=== PATIENT | female | born 1965 | race Caucasian/White ===

== ENCOUNTER 2022-03-05 23:06 | Inpatient (IN) | payer SELFPAY ==
[2022-03-06] MEDS ORDERED: Dextrose 50% Abboject 50 ML SYRINGE SLOW IVP PRN (00:14)
[2022-03-06] MEDS ORDERED: Dextrose 5% in Water 1,000 ML IV PRN (00:14)
[2022-03-06] MEDS ORDERED: Pantoprazole 40 MG VIAL IVP SCH (00:15)
[2022-03-06] MEDS ORDERED: Potassium Chloride 20 MEQ TAB PO SCH (00:15)
[2022-03-06] MEDS ORDERED: Aspirin Chewable 81 MG TAB PO SCH (00:15)
[2022-03-06] MEDS ORDERED: Furosemide 40 MG/4 ML VIAL SLOW IVP SCH (00:15)
[2022-03-06] MEDS ORDERED: Sertraline 25 MG TAB PO SCH (00:30)
[2022-03-06 00:49] LABS: Magnesium 1.6 mg/dL (1.6-2.6)
[2022-03-06 00:56] LABS: Troponin I 0.034 ng/mL (< 0.028)
[2022-03-06 02:06] LABS: Amphetamine Not Detected (NotDetected); Barbiturates Screen Not Detected (NotDetected); Benzodiazepine Screen Not Detected (NotDetected); Cocaine Metabolite Screen Not Detected (NotDetected); Methadone Not Detected (NotDetected); Methamphetamine Not Detected (NotDetected); Opiate Screen Not Detected (NotDetected); Oxycodone Screen Not Detected (NotDetected); Phencyclidine (PCP) Not Detected (NotDetected); THC/Cannabinoid Screen Not Detected (NotDetected); Tricyclic Screen Not Detected (NotDetected)
[2022-03-06 03:56] LABS: #Basophils 0.1 10x3/uL (0.0-0.2); #Eosinphils 0.4 10x3/uL (0.0-0.5); #Monocytes 0.7 10x3/uL (0.0-1.1); #Neutrophils 5.6 10x3/uL (1.5-8.4); %Basophils 0.9 % (0.0-2.0); %Eosinophils 4.5 % (0.0-6.0); %Lymphocytes 20.6 % (18.0-47.0); %Monocytes 8.4 % (0.0-10.0); %Neutrophils 65.3 % (40.0-75.0); Hemoglobin 9.8 g/dL (12.0-15.5); Mean Corpuscular HGB CONC 33.2 g/dL (32.0-36.0); Mean Corpuscular Hemoglobin 29.6 pg (27.0-33.0); Mean Corpuscular Volume 89.1 fl (81.6-98.3); Mean Platelet Volume 9.5 fl (7.4-10.4); Platelet Count 312 10x3/uL (150-450); Red Blood Cell (RBC) Count 3.31 10x6/uL (3.90-5.03); White Blood Cell (WBC) Count 8.6 10x3/uL (3.5-10.5)
[2022-03-06 04:14] LABS: Cardiac Risk 5.5 (Less than 4.5)
[2022-03-06 04:36] LABS: Uric Acid 7.2 mg/dL (2.6-6.0)
[2022-03-06] MEDS: Furosemide 40 MG/4 ML VIAL SLOW IVP SCH ×2 (06:28→14:46)
[2022-03-06] MEDS: Nitroglycerin 2% Ointment 1 INCH/1 GM Packet TOP SCH ×3 (06:29→22:01)
[2022-03-06] MEDS: HumaLOG 300 UNITS/3 ML VIAL SC PRN (06:29)
[2022-03-06] MEDS: Lisinopril 10 MG TAB PO SCH (08:11)
[2022-03-06] MEDS: Sertraline 25 MG TAB PO SCH (08:11)
[2022-03-06] MEDS: Aspirin Chewable 81 MG TAB PO SCH (08:11)
[2022-03-06] MEDS: Carvedilol 3.125 MG TAB PO SCH ×2 (08:11→21:59)
[2022-03-06] MEDS: Magnesium Oxide 400 MG TAB PO SCH ×2 (08:12→21:59)
[2022-03-06] MEDS: Lantus 1000 UNITS/10 ML VIAL SC SCH ×2 (08:12→21:59)
[2022-03-06] MEDS: metFORMIN 500 MG TAB PO SCH ×2 (08:12→17:42)
[2022-03-06 08:52] LABS: Anion Gap 14 mmol/L (10-20); BUN (Urea Nitrogen) 29 mg/dL (9.8-20.1); Calc. Creatinine Clearance 53 mL/min (70-130); Calcium 8.7 mg/dL (7.8-10.44); Carbon Dioxide 25 mmol/L (22-29); Chloride 102 mmol/L (98-107); Estimated GFR 37; Glucose 355 mg/dL (70-105); Potassium 3.5 mmol/L (3.5-5.1); Sodium 137 mmol/L (136-145)
[2022-03-06] MEDS: Acetaminophen 325 MG TAB PO PRN ×2 (09:58→14:49)
[2022-03-06] MEDS ORDERED: Gabapentin 100 MG CAP PO SCH (11:00)
[2022-03-06 16:04] LABS: Hemoglobin A1c 11.4 % (4.0-6.0)
[2022-03-06] MEDS ORDERED: Calcium Carbonate 500 MG ChewTAB PO PRN (16:55)
[2022-03-06] MEDS ORDERED: Magnesium 2 GM/50 ML(in water) 2 GM in Premix Bag 1 BAG IVPB SCH (17:00)
[2022-03-06] MEDS ORDERED: Cyclobenzaprine 10 MG TAB PO SCH (17:00)
[2022-03-06 20:39] LABS: SARS-CoV-2 NAA Rapid Test Not Detected (NotDetected)
[2022-03-06] MEDS: Atorvastatin Calcium 40 MG TAB PO SCH (21:59)
[2022-03-07 06:09] LABS: Troponin I 0.029 ng/mL (< 0.028)
[2022-03-07 06:11] LABS: Anion Gap 13 mmol/L (10-20); BUN (Urea Nitrogen) 41 mg/dL (9.8-20.1); Calc. Creatinine Clearance 58 mL/min (70-130); Calcium 8.6 mg/dL (7.8-10.44); Carbon Dioxide 25 mmol/L (22-29); Chloride 104 mmol/L (98-107); Estimated GFR 41; Glucose 234 mg/dL (70-105); Potassium 4.2 mmol/L (3.5-5.1); Sodium 138 mmol/L (136-145)
[2022-03-07] MEDS: Nitroglycerin 2% Ointment 1 INCH/1 GM Packet TOP SCH ×3 (06:17→22:04)
[2022-03-07] MEDS: Furosemide 40 MG/4 ML VIAL SLOW IVP SCH ×2 (06:17→14:10)
[2022-03-07] MEDS: Carvedilol 3.125 MG TAB PO SCH ×2 (09:37→20:36)
[2022-03-07] MEDS: metFORMIN 500 MG TAB PO SCH (09:38)
[2022-03-07] MEDS: Aspirin Chewable 81 MG TAB PO SCH (09:38)
[2022-03-07] MEDS: Lisinopril 10 MG TAB PO SCH (09:38)
[2022-03-07] MEDS: Magnesium Oxide 400 MG TAB PO SCH ×2 (09:38→20:36)
[2022-03-07] MEDS: Sertraline 25 MG TAB PO SCH (09:39)
[2022-03-07] MEDS: Lantus 1000 UNITS/10 ML VIAL SC SCH ×2 (09:53→20:37)
[2022-03-07] MEDS: Capsaicin 0.025% Cream 60 gm Tube TOP SCH ×2 (15:13→20:41)
[2022-03-07] MEDS ORDERED: HYDROcodone/Acetaminophen 5/325 mg Tablet PO SCH (20:30)
[2022-03-07] MEDS: Atorvastatin Calcium 40 MG TAB PO SCH (20:36)
[2022-03-07] MEDS: HumaLOG 300 UNITS/3 ML VIAL SC PRN (20:39)
[2022-03-07] MEDS: Acetaminophen 325 MG TAB PO PRN (22:23)
[2022-03-08 05:41] VITALS: BMI 33.7
[2022-03-08] MEDS: Furosemide 40 MG/4 ML VIAL SLOW IVP SCH ×2 (05:46→13:44)
[2022-03-08] MEDS: Nitroglycerin 2% Ointment 1 INCH/1 GM Packet TOP SCH ×2 (05:52→16:08)
[2022-03-08 06:06] LABS: Anion Gap 14 mmol/L (10-20); BUN (Urea Nitrogen) 44 mg/dL (9.8-20.1); Calc. Creatinine Clearance 58 mL/min (70-130); Calcium 8.4 mg/dL (7.8-10.44); Carbon Dioxide 29 mmol/L (22-29); Chloride 100 mmol/L (98-107); Estimated GFR 41; Glucose 80 mg/dL (70-105); Potassium 3.6 mmol/L (3.5-5.1); Sodium 139 mmol/L (136-145)
[2022-03-08] MEDS: HumaLOG 300 UNITS/3 ML VIAL SC PRN ×2 (09:01→12:03)
[2022-03-08] MEDS: Lantus 1000 UNITS/10 ML VIAL SC SCH (09:01)
[2022-03-08] MEDS: Aspirin Chewable 81 MG TAB PO SCH (09:07)
[2022-03-08] MEDS: Sertraline 25 MG TAB PO SCH (09:07)
[2022-03-08] MEDS: Magnesium Oxide 400 MG TAB PO SCH (09:07)
[2022-03-08] MEDS: Capsaicin 0.025% Cream 60 gm Tube TOP SCH ×2 (09:13→16:08)
[2022-03-08] MEDS ORDERED: HYDROcodone/Acetaminophen 5/325 mg Tablet PO SCH (09:15)
[2022-03-08] MEDS: Acetaminophen 325 MG TAB PO PRN (13:44)
[2022-03-08] MEDS: Lisinopril 10 MG TAB PO SCH (16:08)
[2022-03-08] MEDS: Carvedilol 3.125 MG TAB PO SCH (16:09)
[2022-03-08 16:36] VITALS: BP 109/64; TEMP 98.1
== END 2022-03-08 18:10 | disposition home or self-care (01) | DRG 291 ==
LOC: CSHTELE 23:06
PROVIDERS: ADMIT Family Medicine; ATTEND Internal Medicine
DX: I13.0 Hypertensive heart and chronic kidney disease with heart failure and stage 1 through stage 4 chronic kidney disease, or unspecified chronic kidney disease (principal); I50.21 Acute systolic (congestive) heart failure; N17.9 Acute kidney failure, unspecified; F41.9 Anxiety disorder, unspecified; N18.32 Chronic kidney disease, stage 3b; E11.65 Type 2 diabetes mellitus with hyperglycemia; R10.13 Epigastric pain; Z20.822 Contact with and (suspected) exposure to COVID-19; E78.5 Hyperlipidemia, unspecified; B02.9 Zoster without complications; E11.22 Type 2 diabetes mellitus with diabetic chronic kidney disease; F15.10 Other stimulant abuse, uncomplicated; Z87.891 Personal history of nicotine dependence; Z88.5 Allergy status to narcotic agent; Z79.4 Long term (current) use of insulin; Z79.84 Long term (current) use of oral hypoglycemic drugs; Z79.899 Other long term (current) drug therapy; Z90.49 Acquired absence of other specified parts of digestive tract; Z98.890 Other specified postprocedural states; Z98.51 Tubal ligation status
CPT/HCPCS: 36415; 36416; 80048; 80061; 80306; 83036; 83735; 84443; 84484; 84550; 85025; 93005; 93010; 93306; 94760; C9113; J1650; J1815; J1940; J3475; U0002

== ENCOUNTER 2022-10-10 13:34 | Inpatient (IN) | payer SELFPAY ==
[2022-10-10] MEDS: Insulin Regular 300 UNITS/3 ML VIAL SC PRN ×2 (16:00→20:26)
[2022-10-10] MEDS ORDERED: Senokot S 8.6-50 MG TAB PO PRN (16:02)
[2022-10-10] MEDS ORDERED: Acetaminophen 650 MG Suppository PR PRN (16:02)
[2022-10-10] MEDS ORDERED: Glucagon 1 MG/ML KIT IM PRN (16:05)
[2022-10-10] MEDS ORDERED: Dextrose 5% in Water 1,000 ML IV PRN (16:05)
[2022-10-10] MEDS ORDERED: Dextrose 50% Abboject 50 ML SYRINGE SLOW IVP PRN (16:05)
[2022-10-10] MEDS ORDERED: rOPINIRole HCl 0.25 MG TAB PO PRN (16:06)
[2022-10-10 16:09] VITALS: BMI 33.8
[2022-10-10] MEDS ORDERED: Melatonin 3 MG TAB PO PRN (16:45)
[2022-10-10 17:05] LABS: Magnesium 1.7 mg/dL (1.6-2.6)
[2022-10-10] MEDS: traMADol HCl 50 MG TAB PO PRN (20:24)
[2022-10-10] MEDS: Acetaminophen 325 MG TAB PO PRN (20:25)
[2022-10-10] MEDS: Carvedilol 3.125 MG TAB PO SCH (20:26)
[2022-10-10] MEDS: Atorvastatin Calcium 10 MG TAB PO SCH (20:26)
[2022-10-10] MEDS: Lantus 1000 UNITS/10 ML VIAL SC SCH (20:26)
[2022-10-11] MEDS: Acetaminophen 325 MG TAB PO PRN ×3 (04:38→19:25)
[2022-10-11] MEDS: traMADol HCl 50 MG TAB PO PRN ×3 (04:39→19:25)
[2022-10-11 04:51] LABS: #Basophils 0.1 10x3/uL (0.0-0.2); #Eosinphils 0.3 10x3/uL (0.0-0.5); #Monocytes 0.6 10x3/uL (0.0-1.1); #Neutrophils 6.2 10x3/uL (1.5-8.4); %Basophils 0.6 % (0.0-2.0); %Lymphocytes 14.3 % (18.0-47.0); %Monocytes 7.5 % (0.0-10.0); %Neutrophils 73.4 % (40.0-75.0); Hematocrit 27.9 % (34.9-44.5); Hemoglobin 8.6 g/dL (12.0-15.5); Mean Corpuscular HGB CONC 30.8 g/dL (32.0-36.0); Mean Corpuscular Hemoglobin 28.9 pg (27.0-33.0); Mean Corpuscular Volume 93.6 fl (81.6-98.3); Mean Platelet Volume 10.1 fl (7.4-10.4); Platelet Count 311 10x3/uL (150-450); RBC Distribution Width 14.9 % (11.5-14.5); Red Blood Cell (RBC) Count 2.98 10x6/uL (3.90-5.03); White Blood Cell (WBC) Count 8.6 10x3/uL (3.5-10.5)
[2022-10-11 04:55] LABS: Anion Gap 15 mmol/L (10-20); BUN (Urea Nitrogen) 37 mg/dL (9.8-20.1); Calc. Creatinine Clearance 55 mL/min (70-130); Calcium 9.6 mg/dL (7.8-10.44); Carbon Dioxide 25 mmol/L (22-29); Chloride 100 mmol/L (98-107); Estimated GFR 39; Glucose 206 mg/dL (70-105); Potassium 4.6 mmol/L (3.5-5.1); Sodium 135 mmol/L (136-145)
[2022-10-11] MEDS: Furosemide 40 MG/4 ML VIAL SLOW IVP SCH ×2 (06:20→13:12)
[2022-10-11] MEDS: Insulin Regular 300 UNITS/3 ML VIAL SC PRN ×3 (06:21→21:45)
[2022-10-11] MEDS: Aspirin 81 mg Enteric Coated Tablet PO SCH (08:05)
[2022-10-11] MEDS: Carvedilol 3.125 MG TAB PO SCH ×2 (08:06→21:46)
[2022-10-11] MEDS: Lantus 1000 UNITS/10 ML VIAL SC SCH ×2 (08:07→21:45)
[2022-10-11] MEDS ORDERED: Lisinopril 10 MG TAB PO SCH (09:00)
[2022-10-11 12:09] LABS: Iron 60 ug/dL (50-170); Iron Binding Capacity, Total 293 mcg/dL (265-497)
[2022-10-11 12:23] LABS: Ferritin 91.76 ng/mL (10-291)
[2022-10-11 13:51] LABS: Hemoglobin A1c 8.5 % (4.0-6.0)
[2022-10-11] MEDS: Atorvastatin Calcium 10 MG TAB PO SCH (21:45)
[2022-10-12] MEDS: traMADol HCl 50 MG TAB PO PRN ×3 (00:51→21:13)
[2022-10-12] MEDS: Acetaminophen 325 MG TAB PO PRN ×3 (00:51→21:13)
[2022-10-12 05:21] LABS: #Basophils 0.1 10x3/uL (0.0-0.2); #Eosinphils 0.4 10x3/uL (0.0-0.5); #Neutrophils 6.6 10x3/uL (1.5-8.4); %Basophils 0.5 % (0.0-2.0); %Eosinophils 4.4 % (0.0-6.0); %Lymphocytes 12.8 % (18.0-47.0); %Monocytes 10.5 % (0.0-10.0); %Neutrophils 71.4 % (40.0-75.0); Hematocrit 29.9 % (34.9-44.5); Hemoglobin 9.2 g/dL (12.0-15.5); Mean Corpuscular HGB CONC 30.8 g/dL (32.0-36.0); Mean Corpuscular Hemoglobin 28.7 pg (27.0-33.0); Mean Corpuscular Volume 93.1 fl (81.6-98.3); Mean Platelet Volume 9.1 fl (7.4-10.4); Platelet Count 356 10x3/uL (150-450); RBC Distribution Width 14.9 % (11.5-14.5); Red Blood Cell (RBC) Count 3.21 10x6/uL (3.90-5.03); White Blood Cell (WBC) Count 9.3 10x3/uL (3.5-10.5)
[2022-10-12 05:31] LABS: Anion Gap 14 mmol/L (10-20); BUN (Urea Nitrogen) 54 mg/dL (9.8-20.1); Calc. Creatinine Clearance 50 mL/min (70-130); Calcium 9.1 mg/dL (7.8-10.44); Carbon Dioxide 27 mmol/L (22-29); Chloride 99 mmol/L (98-107); Estimated GFR 36; Glucose 84 mg/dL (70-105); Sodium 135 mmol/L (136-145)
[2022-10-12] MEDS: Furosemide 40 MG/4 ML VIAL SLOW IVP SCH (06:26)
[2022-10-12] MEDS ORDERED: Furosemide 40 MG TAB PO SCH (09:00)
[2022-10-12] MEDS: Aspirin 81 mg Enteric Coated Tablet PO SCH (09:56)
[2022-10-12] MEDS: Carvedilol 3.125 MG TAB PO SCH ×2 (09:57→21:13)
[2022-10-12] MEDS: Lantus 1000 UNITS/10 ML VIAL SC SCH ×2 (09:58→21:20)
[2022-10-12] MEDS: Ondansetron PF 4 MG/2 ML Vial IVP PRN (14:06)
[2022-10-12] MEDS: Insulin Regular 300 UNITS/3 ML VIAL SC PRN ×2 (14:22→21:20)
[2022-10-12] MEDS: Ondansetron ODT 4 MG TAB PO PRN (14:22)
[2022-10-12] MEDS: Atorvastatin Calcium 10 MG TAB PO SCH (21:14)
[2022-10-13] MEDS: Ondansetron ODT 4 MG TAB PO PRN ×2 (00:28→06:30)
[2022-10-13 05:11] LABS: Anion Gap 16 mmol/L (10-20); BUN (Urea Nitrogen) 67 mg/dL (9.8-20.1); Calc. Creatinine Clearance 40 mL/min (70-130); Calcium 8.5 mg/dL (7.8-10.44); Carbon Dioxide 29 mmol/L (22-29); Chloride 94 mmol/L (98-107); Estimated GFR 27; Glucose 237 mg/dL (70-105); Potassium 5.2 mmol/L (3.5-5.1); Sodium 134 mmol/L (136-145)
[2022-10-13 05:14] LABS: #Eosinphils 0.2 10x3/uL (0.0-0.5); #Neutrophils 7.7 10x3/uL (1.5-8.4); %Basophils 0.4 % (0.0-2.0); %Eosinophils 1.6 % (0.0-6.0); %Lymphocytes 7.9 % (18.0-47.0); %Monocytes 10.7 % (0.0-10.0); Mean Corpuscular Hemoglobin 29.3 pg (27.0-33.0); Mean Corpuscular Volume 94.5 fl (81.6-98.3); Mean Platelet Volume 9.2 fl (7.4-10.4); Platelet Count 348 10x3/uL (150-450); RBC Distribution Width 14.9 % (11.5-14.5); Red Blood Cell (RBC) Count 3.07 10x6/uL (3.90-5.03); White Blood Cell (WBC) Count 9.7 10x3/uL (3.5-10.5)
[2022-10-13] MEDS: Insulin Regular 300 UNITS/3 ML VIAL SC PRN ×2 (05:59→11:53)
[2022-10-13] MEDS: Aspirin 81 mg Enteric Coated Tablet PO SCH (08:36)
[2022-10-13] MEDS: Carvedilol 3.125 MG TAB PO SCH (08:36)
[2022-10-13] MEDS: Lantus 1000 UNITS/10 ML VIAL SC SCH (08:36)
[2022-10-13] MEDS: Acetaminophen 325 MG TAB PO PRN (14:23)
[2022-10-13] MEDS: Ondansetron PF 4 MG/2 ML Vial IVP PRN (15:39)
[2022-10-13] MEDS: traMADol HCl 50 MG TAB PO PRN (15:41)
[2022-10-13 17:17] VITALS: BP 128/68; TEMP 98.9
== END 2022-10-13 17:55 | disposition home or self-care (01) | DRG 291 ==
LOC: CSHTELE 13:41
PROVIDERS: ADMIT Physician Assistant; ATTEND Internal Medicine
DX: I11.0 Hypertensive heart disease with heart failure (principal); I50.23 Acute on chronic systolic (congestive) heart failure; J96.01 Acute respiratory failure with hypoxia; N17.9 Acute kidney failure, unspecified; E78.5 Hyperlipidemia, unspecified; E11.9 Type 2 diabetes mellitus without complications; F41.9 Anxiety disorder, unspecified; G25.81 Restless legs syndrome; Z88.1 Allergy status to other antibiotic agents; Z79.4 Long term (current) use of insulin; Z79.899 Other long term (current) drug therapy; Z79.82 Long term (current) use of aspirin; Z90.49 Acquired absence of other specified parts of digestive tract; Z98.890 Other specified postprocedural states; Z98.51 Tubal ligation status; Z87.891 Personal history of nicotine dependence
CPT/HCPCS: 36415; 36416; 71045; 80048; 82607; 82728; 83036; 83540; 83550; 83735; 84443; 84484; 85025; 93005; 93010; 93306; 94760; J1650; J1815; J1940; J2405; Q0162